=== PATIENT | female | born 2000 | race Caucasian/White ===

== ENCOUNTER 2021-03-07 16:51 | Inpatient (IN) | payer OTHER ==
[~2021-03-07 16:51] MED LIST: AUGMENTIN 875-1 EACH PO; COLACE 100MG C100 MG PO; MACROBID 100 M100 MG PO; NAPROSYN500 MG PO; NORCO 5-325 TA1 EACH PO; PROVENTIL HFA6.7 GM INH; ZOFRAN4 MG PO
[2021-03-07 17:57] LABS: HEMOGLOBIN 11.3 gm/dl (12.3-15.3); RED BLOOD COUNT 4.32 M/UL (4.00-5.10)
[2021-03-08] MEDS ORDERED: HYDROCODON-ACE1 EAC4 PO (15:05)
[2021-03-08] MEDS ORDERED: DOCUSATE SODIU100 MG PO (15:05)
[2021-03-08] MEDS ORDERED: IBUPROFEN600 MG PO (15:05)
[2021-03-09 06:30] LABS: HEMOGLOBIN 10.4 gm/dl (12.3-15.3)
== END 2021-03-10 15:15 | disposition home or self-care (01) | DRG 807 ==
LOC: GENOP 16:51 → OB 17:19
PROVIDERS: Obstetrics & Gynecology; ADMIT Obstetrics & Gynecology
PROC: 4A1HXCZ Monitoring of Products of Conception, Cardiac Rate, External Approach (ICD-10-PCS; 2021-03-07)
PROC: 10E0XZZ Delivery of Products of Conception, External Approach (ICD-10-PCS; principal; 2021-03-08)
PROC: 10907ZC Drainage of Amniotic Fluid, Therapeutic from Products of Conception, Via Natural or Artificial Opening (ICD-10-PCS; 2021-03-08)
PROC: 0HQ9XZZ Repair Perineum Skin, External Approach (ICD-10-PCS; 2021-03-08)
PROC: 3E0234Z Introduction of Serum, Toxoid and Vaccine into Muscle, Percutaneous Approach (ICD-10-PCS; 2021-03-08)
DX: O99.354 Diseases of the nervous system complicating childbirth (principal); Z37.0 Single live birth; Z3A.38 38 weeks gestation of pregnancy; O99.62 Diseases of the digestive system complicating childbirth; Z20.822 Contact with and (suspected) exposure to COVID-19; O99.52 Diseases of the respiratory system complicating childbirth; K21.9 Gastro-esophageal reflux disease without esophagitis; G43.909 Migraine, unspecified, not intractable, without status migrainosus; F32.A Depression, unspecified; O99.344 Other mental disorders complicating childbirth; O99.02 Anemia complicating childbirth; D64.9 Anemia, unspecified; J45.909 Unspecified asthma, uncomplicated; O70.0 First degree perineal laceration during delivery; Z90.49 Acquired absence of other specified parts of digestive tract; Z23 Encounter for immunization
CPT/HCPCS: 36415; 36600; 51702; 82800; 85014; 85018; 85025; 90471; 90707; J2590; J3010; J7120